=== PATIENT | male | born 1950 | race Caucasian/White ===

== ENCOUNTER → 2019-04-29 11:36 | Outpatient (CLI) | payer MEDICARE, OTHER, SELFPAY ==
[2019-04-29 13:13] LABS: Blood Urea Nitrogen 17 mg/dL (9-20); Carbon Dioxide 31 mmol/L (22-32); Chloride 102 mmol/L (98-107); Estimated Glomerular Filt Rate > 60.0 mL/min (>60); Glucose 70 mg/dL (80-110); HEMOLYSIS < 15 (0-50); Potassium 4.7 mmol/L (3.4-5.1); Sodium 141 mmol/L (137-145)
[2019-04-29 13:42] LABS: Prostate Specific Antigen Scrn 9.51 ng/mL (0.1-4.0)
[2019-04-29 15:23] LABS: Vitamin D 25 Hydroxy (D3) 68.3 ng/mL (30.0-100.0)
== END ==
PROVIDERS: PCP Student in an Organized Health Care Education/Training Program; Visit Provider Student in an Organized Health Care Education/Training Program
DX: R97.20 Elevated prostate specific antigen [PSA] (principal); E55.9 Vitamin D deficiency, unspecified; I10 Essential (primary) hypertension
CPT/HCPCS: 36415; 80048; 82306; 84153; G0103

== ENCOUNTER → 2019-05-06 09:44 | Outpatient (CLI) | payer MEDICARE, OTHER, SELFPAY ==
--- NOTE | 2019-05-06 09:45 | DI.US.S_ITS ---
PROCEDURE: US ABD AORTA ANEURYSM SCREEN INDICATIONS: AAA SCREEN TECHNIQUE: Real time scanning was performed of the aorta and iliac arteries, with image documentation. COMPARISON: None. FINDINGS: Aorta: Proximal aortic diameter measures 2.3 cm. Mid-aorta measures 2.0 cm. Distal aortic diameter is 1.9 cm. Iliac arteries: Right common iliac artery measures 1.3 cm. Left common iliac artery measures 1.2 cm. IMPRESSION: No abdominal aortic or proximal common iliac artery aneurysm. Dictated by: Isaias HUNTLEY Interpreted: Vaishali Molina MD on 05/06/2019 at 10:22 Approved by: Vaishali Molina M.D. on 05/06/2019 at 14:46
== END ==
PROVIDERS: PCP Student in an Organized Health Care Education/Training Program; Visit Provider Student in an Organized Health Care Education/Training Program
DX: Z13.6 Encounter for screening for cardiovascular disorders (principal); Z87.891 Personal history of nicotine dependence
CPT/HCPCS: 76706

== ENCOUNTER → 2019-12-13 12:43 | Outpatient (CLI) | payer MEDICARE, OTHER, SELFPAY ==
[2019-12-13 15:59] LABS: Prostate Specific Antigen 9.95 ng/mL (0.10-4.00)
== END ==
PROVIDERS: PCP Student in an Organized Health Care Education/Training Program; Visit Provider Urology
DX: Z85.46 Personal history of malignant neoplasm of prostate (principal)
CPT/HCPCS: 36415; 84153

== ENCOUNTER → 2020-04-26 12:32 | Outpatient (CLI) | payer MEDICARE, OTHER, SELFPAY ==
[2020-04-26 18:52] LABS: Prostate Specific Antigen 5.84 ng/mL (0.10-4.00)
== END ==
PROVIDERS: PCP Student in an Organized Health Care Education/Training Program; Referring Provider Urology; Visit Provider Urology
DX: R97.20 Elevated prostate specific antigen [PSA] (principal)
CPT/HCPCS: 36415; 84153

== ENCOUNTER → 2020-10-13 12:09 | Outpatient (CLI) | payer MEDICARE, OTHER, SELFPAY ==
[2020-10-13 15:03] LABS: BUN Creatinine Ratio 17.3 (6-22); Blood Urea Nitrogen 17 mg/dL (9-20); Calcium 9.8 mg/dL (8.4-10.2); Carbon Dioxide 30 mmol/L (22-32); Chloride 101 mmol/L (98-107); Estimated Glomerular Filt Rate > 60.0 mL/min (>60); Glucose 67 mg/dL (80-110); HEMOLYSIS < 15 (0-50); Potassium 4.2 mmol/L (3.4-5.1); Sodium 141 mmol/L (137-145)
[2020-10-13 15:33] LABS: Prostate Specific Antigen 6.24 ng/mL (0.10-4.00)
== END ==
PROVIDERS: PCP Student in an Organized Health Care Education/Training Program; Referring Provider Urology; Visit Provider Urology
DX: Z85.46 Personal history of malignant neoplasm of prostate (principal); I10 Essential (primary) hypertension
CPT/HCPCS: 36415; 80048; 84153

== ENCOUNTER → 2020-12-05 11:59 | Outpatient (CLI) | payer MEDICARE, OTHER, SELFPAY ==
[2020-12-05 12:22] LABS: COVID19 -Nasal RAPID Negative (Negative)
== END ==
PROVIDERS: PCP Student in an Organized Health Care Education/Training Program; Visit Provider Physician Assistant
DX: Z20.822 Contact with and (suspected) exposure to COVID-19 (principal)
CPT/HCPCS: 87635

== ENCOUNTER → 2021-04-12 11:42 | Outpatient (CLI) | payer MEDICARE, OTHER, SELFPAY ==
--- NOTE | 2021-05-02 09:06 | P.HOLT.S_ITS ---
Home Care Manager Report Referral & Results Date Patient Seen: 04/12/21 Requesting provider: Sarmad Mitchell Indication: Syncope Duration of monitoring (days): 3 Diary information: There were 2 patient triggered events and 2 patient diary entries These patient events were associated with sinus rhythm only Data: Minimum heart rate identified was 40 beats per minute at 01:13 on 04/15/2021 Maximum sinus heart rate was 119 beats per minute at 10:45 on 04/15/2021 Maximum overall heart rate was 162 beats per minute at 17:39 on 04/12/2021 during an 11 beat run of SVT/atrial tachycardia Less than 1% of identified beats were ventricular or supraventricular ectopic in origin, which would classify them as rare. 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
== END ==
PROVIDERS: PCP Student in an Organized Health Care Education/Training Program; Referring Provider Student in an Organized Health Care Education/Training Program; Visit Provider Student in an Organized Health Care Education/Training Program
DX: R55 Syncope and collapse (principal); G45.9 Transient cerebral ischemic attack, unspecified
CPT/HCPCS: 93242; 93244

== ENCOUNTER → 2021-04-12 12:15 | Outpatient (CLI) | payer MEDICARE, OTHER, SELFPAY ==
[2021-04-12 17:41] LABS: Prostate Specific Antigen 8.52 ng/mL (0.10-4.00)
== END ==
PROVIDERS: PCP Student in an Organized Health Care Education/Training Program; Referring Provider Urology; Visit Provider Urology
DX: C61 Malignant neoplasm of prostate (principal)
CPT/HCPCS: 36415; 84153

== ENCOUNTER 2021-06-12 11:26 | Emergency (ER) | payer MEDICARE, OTHER, SELFPAY ==
[2021-06-12 11:34] VITALS: BP 148/79; PULSE 61; RESP 16; TEMP 36.3; O2SAT 98; BMI 28.1
--- NOTE | 2021-06-12 11:39 | DI.RAD.S_ITS ---
PROCEDURE: XR FOOT RT MIN 3V INDICATIONS: pain for 11 days TECHNIQUE: 3 views of the foot were acquired. COMPARISON: None. FINDINGS: Bones: Postsurgical changes compatible prior ORIF of distal right fibular fracture. No acute fractures or dislocations. No suspicious bony lesions. Mild midfoot, tibiotalar and subtalar osteoarthritis. Small dorsal calcaneal bone spur. Soft tissues: No tibiotalar joint effusion. Achilles tendon appears normal. IMPRESSION: No fracture. No acute osseous lesion. If symptoms and/or clinical suspicion for pathology persists, further assessment with repeat radiographs (7-10 days) or advanced imaging (e.g. CT, MRI or bone scan) should be considered. Dictated by: Lien Amanda MD, PhD on 06/12/2021 at 12:33 Approved by: Lien Amanda MD, PhD on 06/12/2021 at 12:34
--- NOTE | 2021-06-12 14:35 | ED_ITS ---
HPI - Extremity Injury (Lower) General Chief Complaint: Extremity Injury, Lower Stated Complaint: injured right foot, tennis injury 3 wks ago Time Seen by Provider: 06/12/21 14:26 Source: patient Mode of arrival: Ambulatory Limitations: no limitations History of Present Illness HPI Narrative: This is a 71-year-old male comes emergency department complaint of injury to his right foot. Patient states he was playing tennis 3 weeks ago, he had pain on the lateral portion over the metatarsal of his right foot. It was improving he continued to be very active and once again rolled on that side and has since had pain over the metatarsal continued. Patient is able to ambulate but is uncomfortable. He denies any other injuries. No numbness, tingling or weakness. No ecchymosis, redness or skin changes. Patient denies any major medical issues he does take an aspirin daily as well as atorvastatin and antihypertensives. Related Data Home Medications Medication Instructions Recorded Confirmed cholecalciferol (vitamin D3) 25 1,000 unit PO QDAY #0 tab 09/19/16 04/05/21 mcg (1,000 unit) tablet (Vitamin D3) omeprazole 20 mg tablet,delayed 20 mg PO QDAY #0 tab 09/19/16 04/05/21 release aspirin 81 mg tablet,delayed 81 mg PO DAILY 04/05/21 04/05/21 release Previous Rx's Medication Instructions Recorded tamsulosin 0.4 mg capsule (Flomax) 0.4 mg PO QDAY #90 cap 05/29/20 atorvastatin 20 mg tablet (Lipitor) 20 mg PO HS #90 tab 09/08/20 losartan 50 mg tablet 50 mg PO QDAY #90 tab 11/03/20 Allergies Allergy/AdvReac Type Severity Reaction Status Date / Time No Known Drug Allergies Allergy Unverified 04/05/21 14:58 Review of Systems Review of Systems ROS Unobtainable: All systems reviewed & are unremarkable except as noted in HPI and below Patient History Medical History Seasonal allergies Sinusitis Tinnitus (~2014) Surgical History Fibula fracture (~2014) History of surgery (~1968) Family History Father History of heart bypass surgery Mother Hypertension Hyperlipidemia Lymphoma History of heart disease Social History Smoking Status: Never smoker Smoking Status: Never smoker Substance Use Type: does not use Exam Narrative Exam Narrative: GENERAL: Alert and oriented x three, male in mild distress. Seated in chair. HEENT: Head normocephalic, atraumatic, EOMI, pupils reactive, face symmetric, moist mucous membranes NECK: Supple, full range of motion EXTREMITIES: Normal range of motion, no clubbing or edema. Neurovascularly intact. Mild tenderness over the bony prominence of the proximal metatarsal on the right foot. Patient does not have any other bony tenderness. No swelling, no erythema, no hematoma. Normal sensation. +dorsalis pedis. NEUROLOGICAL: Cranial nerves II through XII grossly intact. Moving all extre mities SKIN: Warm, dry, no petechiae, no rashes or lesions. Initial Vital Signs Initial Vital Signs: Vital Signs Temperature 97.4 F L 06/12/21 11:34 Pulse Rate 61 06/12/21 11:34 Respiratory Rate 16 06/12/21 11:34 Blood Pressure 148/79 H 06/12/21 11:34 Pulse Oximetry 98 06/12/21 11:34 Course Orders Ordered: ED Orders 06/12/21 11:39 XR foot RT min 3V Stat Vital Signs Vital signs: Vital Signs - 8 hr 06/12/21 15:27 Pulse Rate 60 Respiratory Rate 18 Blood Pressure 162/74 H Pulse Oximetry 100 MDM - Extremity Injury (Lower) Imaging Data Extremity x-ray #1: Radiologist's Impression: [address] [id number] ReportSigned Patient: Harshal Simons WMR#: [id number]: [id number]:[id number]/Sex: 71 / MDate of Service: 06/12/21Loc: EDAccession Number: [id number] Procedure: XR foot RT min 3V Ordering Provider: Jennifer De La Cruz D.O. PROCEDURE: XR FOOT RT MIN 3V INDICATIONS: pain for 11 days TECHNIQUE: 3 views of the foot were acquired. COMPARISON: None. FINDINGS: Bones: Postsurgical changes compatible prior ORIF of distal right fibular fracture. No acute fractures or dislocations. No suspicious bony lesions. Mild midfoot, tibiotalar and subtalar osteoarthritis. Small dorsal calcaneal bone spur. Soft tissues: No tibiotalar joint effusion. Achilles tendon appears normal. IMPRESSION: No fracture. No acute osseous lesion. If symptoms and/or clinical suspicion for pathology persists, further assessment with repeat radiographs (7-10 days) or advanced imaging (e.g. CT, MRI or bone scan) should be considered. Dictated by: Lien Amanda MD, PhD on 06/12/2021 at 12:33 Approved by: Lien Amanda MD, PhD on 06/12/2021 at 12:34 [facility] Narrative Medical decision making narrative: 71-year-old male with injury to his right foot. Radiology read is negative. On imaging patient does have some arthritic changes possibly this could be some sort of pain. I do not see a clear fracture but discussed with patient possibly could have 1 it is hidden although you would expect to see some bony growth at 3 weeks 10 days out which he has at that time frame. Patient was also did a ortho boot but defers this and trying ortho shoe were given referral to Orthopedic surgery but if he prefers to go through his primary care initially. Discharge Plan Departure Patient Disposition: Home Clinical Impression: Foot pain, right Instructions: DI for Foot Pain Activity Restrictions/Additional Instructions: Follow-up with your physician or orthopedic surgery. Call for an appointment. Referral is included below. You may continue home medications as prescribed. As discussed you may use ortho shoe and continue to use crutches and toe-touch weight-bearing. Splint Care: Keep splint clean and dry. Elevated affected body part to decrease swelling. OK to use ice pack on the affected body part. Use for 15-20 minutes each time, for 5-6x per day. If you develop worsening pain, numbness, tingling, discoloration of the affected body part, adjust the ortho shoe, and either see your doctor for an urgent re-assessment, or return to the Emergency Department. Return to the Emergency Department for any new or worsening symptoms. Prescriptions: No Action omeprazole 20 MG tablet,delayed release (DR/EC) 20 mg PO QDAY Qty: 0 RF: 0 cholecalciferol (vitamin D3) [Vitamin D3] 1,000 UNIT tablet 1,000 unit PO QDAY Qty: 0 RF: 0 tamsulosin [Flomax] 0.4 mg capsule 0.4 mg PO QDAY Qty: 90 RF: 3 losartan 50 mg tablet 50 mg PO QDAY Qty: 90 RF: 3 atorvastatin [Lipitor] 20 mg tablet 20 mg PO HS Qty: 90 RF: 3 aspirin 81 mg tablet,delayed release (DR/EC) 81 mg PO DAILY RF: 0 Referrals: Sarmad Mitchell MD [Primary Care Provider] - Jose Pierson MD [Physician] -
[2021-06-12 15:27] VITALS: BP 162/74; PULSE 60; RESP 18; O2SAT 100
== END 2021-06-12 15:27 | disposition home or self-care (01) ==
PROVIDERS: Emergency Provider Emergency Medicine; PCP Student in an Organized Health Care Education/Training Program
DX: M79.671 Pain in right foot (principal)
CPT/HCPCS: 73630; 99283

== ENCOUNTER → 2021-11-05 14:59 | Outpatient (CLI) | payer MEDICARE, OTHER, SELFPAY ==
[2021-11-05 18:26] LABS: Prostate Specific Antigen 7.93 ng/mL (0.10-4.00)
== END ==
PROVIDERS: PCP Student in an Organized Health Care Education/Training Program; Referring Provider Urology; Visit Provider Urology
DX: R97.20 Elevated prostate specific antigen [PSA] (principal)
CPT/HCPCS: 36415; 84153

== ENCOUNTER → 2022-06-04 11:21 | Outpatient (CLI) | payer MEDICARE, SELFPAY ==
[2022-06-04 14:15] LABS: Prostate Specific Antigen 12.3 ng/mL (0.10-4.00)
== END ==
PROVIDERS: PCP Student in an Organized Health Care Education/Training Program; Referring Provider Urology; Visit Provider Urology
DX: R97.20 Elevated prostate specific antigen [PSA] (principal)
CPT/HCPCS: 36415; 84153

== ENCOUNTER → 2022-06-28 09:41 | Outpatient (CLI) | payer MEDICARE, OTHER, SELFPAY ==
[2022-06-28 10:20] LABS: Hemoglobin A1C% w Est Avg Glu 5.8 % (4.0-6.0)
[2022-06-28 10:27] LABS: BUN Creatinine Ratio 14.4 (6-22); Blood Urea Nitrogen 16 mg/dL (9-20); Calcium 9.2 mg/dL (8.4-10.2); Carbon Dioxide 29 mmol/L (22-32); Cholesterol 223 mg/dL (140-199); Estimated Glomerular Filt Rate > 60 mL/min (>60); Glucose 102 mg/dL (80-110); HDL Cholesterol 35 mg/dL (40-60); HEMOLYSIS < 15 (0-50); LDL Cholesterol Calculated 158 mg/dL (<100); Triglycerides 152 mg/dL (35-150)
[2022-06-28 10:38] LABS: Chloride 102 mmol/L (98-107); Potassium 4.4 mmol/L (3.4-5.1); Sodium 139 mmol/L (137-145)
[2022-06-28 10:58] LABS: Prostate Specific Antigen 10.3 ng/mL (0.10-4.00)
== END ==
PROVIDERS: PCP Student in an Organized Health Care Education/Training Program; Referring Provider Physician Assistant Medical; Visit Provider Physician Assistant Medical
DX: E11.9 Type 2 diabetes mellitus without complications (principal); R97.20 Elevated prostate specific antigen [PSA]; C61 Malignant neoplasm of prostate; I10 Essential (primary) hypertension; E78.00 Pure hypercholesterolemia, unspecified
CPT/HCPCS: 36415; 80048; 80061; 83036; 84153

== ENCOUNTER → 2023-01-08 14:10 | Outpatient (CLI) | payer MEDICARE, OTHER, SELFPAY ==
[2023-01-08 16:03] LABS: Hemoglobin A1C% w Est Avg Glu 5.9 % (4.0-6.0)
[2023-01-08 19:05] LABS: Creatinine Urine Random 40.6 mg/dL
[2023-01-08 19:13] LABS: Microalbumin Urine Random < 0.6 mg/dL (0-1.6)
== END ==
PROVIDERS: PCP Student in an Organized Health Care Education/Training Program; Referring Provider Student in an Organized Health Care Education/Training Program; Visit Provider Student in an Organized Health Care Education/Training Program
DX: E11.9 Type 2 diabetes mellitus without complications (principal)
CPT/HCPCS: 36415; 82043; 82570; 83036

== ENCOUNTER → 2023-06-26 12:27 | Outpatient (CLI) | payer MEDICARE, OTHER, SELFPAY ==
[2023-06-26 15:25] LABS: Prostate Specific Antigen Scrn 8.58 ng/mL (0.1-4.0)
== END ==
PROVIDERS: PCP Pediatrics; Referring Provider Physician Assistant Medical; Visit Provider Physician Assistant Medical
DX: Z12.5 Encounter for screening for malignant neoplasm of prostate (principal); C61 Malignant neoplasm of prostate; R97.20 Elevated prostate specific antigen [PSA]
CPT/HCPCS: 36415; G0103

== ENCOUNTER → 2023-07-08 09:36 | Outpatient (CLI) | payer MEDICARE, OTHER, SELFPAY ==
[2023-07-08 11:58] LABS: BUN Creatinine Ratio 14.3 (6-22); Blood Urea Nitrogen 15 mg/dL (9-20); Calcium 8.8 mg/dL (8.4-10.2); Carbon Dioxide 28 mmol/L (22-32); Chloride 103 mmol/L (98-107); Cholesterol 133 mg/dL (140-199); Estimated Glomerular Filt Rate > 60 mL/min (>60); Glucose 103 mg/dL (80-110); HDL Cholesterol 33 mg/dL (40-60); HEMOLYSIS < 15 (0-50); LDL Cholesterol Calculated 85 mg/dL (<100); Sodium 138 mmol/L (137-145); Triglycerides 77 mg/dL (35-150)
[2023-07-09 03:36] LABS: Labcorp Hemoglobin (Hb) A1c 6.1 % (4.8-5.6)
== END ==
PROVIDERS: PCP Pediatrics; Referring Provider Student in an Organized Health Care Education/Training Program; Visit Provider Student in an Organized Health Care Education/Training Program
DX: E11.9 Type 2 diabetes mellitus without complications (principal); G45.9 Transient cerebral ischemic attack, unspecified; I10 Essential (primary) hypertension
CPT/HCPCS: 36415; 80048; 80061; 83036

== ENCOUNTER → 2023-12-11 14:03 | Outpatient (CLI) | payer MEDICARE, OTHER, SELFPAY ==
[2023-12-11 15:58] LABS: Prostate Specific Antigen 9.49 ng/mL (0.10-4.00)
== END ==
LOC: LAB 14:06
PROVIDERS: PCP Pediatrics; Referring Provider Physician Assistant Medical; Visit Provider Physician Assistant Medical
DX: C61 Malignant neoplasm of prostate (principal)
CPT/HCPCS: 36415; 84153

== ENCOUNTER → 2024-07-05 13:22 | Outpatient (CLI) | payer MEDICARE, OTHER, SELFPAY ==
[2024-07-05 21:47] LABS: Prostate Specific Antigen 9.63 ng/mL (0.10-4.00)
== END ==
LOC: LAB 13:24
PROVIDERS: PCP Family Medicine; Referring Provider Physician Assistant Medical; Visit Provider Physician Assistant Medical
DX: C61 Malignant neoplasm of prostate (principal)
CPT/HCPCS: 36415; 84153

== ENCOUNTER → 2024-10-19 10:48 | Outpatient (CLI) | payer MEDICARE, OTHER, SELFPAY ==
[2024-10-19 12:13] LABS: Hemoglobin A1C% w Est Avg Glu 5.9 % (4.0-6.0)
[2024-10-19 12:20] LABS: Alanine Aminotransferase 39 IU/L (<50); Albumin 4.3 g/dL (3.5-5.0); Albumin Globulin Ratio 1.7 (1.0-2.8); Alkaline Phosphatase 99 U/L (38-126); Aspartate Aminotransferase 29 IU/L (17-59); BUN Creatinine Ratio 13.1 (6-22); Blood Urea Nitrogen 14 mg/dL (9-20); Calcium 9.8 mg/dL (8.4-10.2); Carbon Dioxide 27 mmol/L (22-32); Chloride 101 mmol/L (98-107); Cholesterol 165 mg/dL (140-199); Estimated Glomerular Filt Rate > 60 mL/min (>60); Globulin 2.5 g/dL (1.7-4.1); Glucose 106 mg/dL (80-110); HDL Cholesterol 35 mg/dL (40-60); HEMOLYSIS < 15 (0-50); LDL Cholesterol Calculated 99 mg/dL (<100); Potassium 4.7 mmol/L (3.4-5.1); Sodium 136 mmol/L (137-145); Total Protein 6.8 g/dL (6.3-8.2); Triglycerides 157 mg/dL (35-150)
[2024-10-19 13:06] LABS: Creatinine Urine Random 82.05 mg/dL
[2024-10-19 13:18] LABS: Microalbumin Urine Random < 0.6 mg/dL (0-1.6)
== END ==
PROVIDERS: PCP Family Medicine; Referring Provider Family Medicine; Visit Provider Family Medicine
DX: Z00.00 Encounter for general adult medical examination without abnormal findings (principal); R73.01 Impaired fasting glucose; I10 Essential (primary) hypertension; E78.00 Pure hypercholesterolemia, unspecified
CPT/HCPCS: 36415; 80053; 80061; 82043; 82570; 83036

== ENCOUNTER → 2024-10-25 15:00 | Outpatient (CLI) | payer MEDICARE, OTHER, SELFPAY ==
--- NOTE | 2024-10-25 15:01 | DI.RAD.S_ITS ---
PROCEDURE: XR CHEST 2V INDICATIONS: chronic cough TECHNIQUE: 2 views of the chest were acquired. COMPARISON: None. FINDINGS: Surgical changes and devices: None. Lungs and pleura: Lungs are clear. No pleural effusions or pneumothorax. Mediastinum: Mediastinal contours are normal. Heart size is normal. Bones and chest wall: No suspicious bony abnormalities. Soft tissues appear unremarkable. IMPRESSION: No acute cardiopulmonary pathology. Dictated by: Rigo Luo M.D. on 10/25/2024 at 16:51 Approved by: Rigo Luo M.D. on 10/25/2024 at 16:51
== END ==
LOC: RAD 15:01
PROVIDERS: PCP Family Medicine; Referring Provider Family Medicine; Visit Provider Family Medicine
DX: R05.3 Chronic cough (principal)
CPT/HCPCS: 71046

== ENCOUNTER → 2024-11-04 14:42 | Outpatient (CLI) | payer MEDICARE, OTHER, SELFPAY ==
--- NOTE | 2024-11-04 14:43 | DI.ECHO.S_ITS ---
[facility]+ [facility] : : [address] : : [place] : : [id number] : : Phone: [phone] Echocardiogram Report + + :Name: CARLOS KHAN Study Date: 11/04/2024 Height: 67 in : :[facility] ReadingLocation: Weight: 180 lb : : Gender: Male BSA: 1.9 m2 : :: 1950 Age: 74 yrs BP: 166/91 mmHg: :Reason For Study: MURMUR, HYPERTENSION : :Ordering Physician: ION CURIELPerformed By: Jessica Zarate : :Referring: ION CURIEL : + + Interpretation Summary The left ventricle is normal in size. The ejection fraction is estimated to be 55-60%. The right ventricle is normal size. Right ventricular systolic function is at the lower limits of normal. The aortic valve is mildly calcified. There is mildly reduced leaflet mobility. There is no hemodynamically significant valvular aortic stenosis. There is mild tricuspid regurgitation. The right ventricular systolic pressure is estimated to be at least 23 mmHg based on an estimated right atrial pressure of 3 mm Hg. Procedure: A two-dimensional transthoracic echocardiogram with color flow and Doppler was performed. The study quality was technically adequate. There is no prior echocardiogram noted for this patient. The patient was in sinus bradycardia with heart rates between 55-58 bpm during the exam. Left Ventricle: The left ventricle is normal in size. There is normal left ventricular wall thickness. There is no thrombus. The ejection fraction is estimated to be 55-60%. There are no focal wall motion abnormalities. Diastolic parameters suggest a relaxation abnormality of the left ventricle, consistent with probable normal filling pressures. Right Ventricle: The right ventricle is normal size. Right ventricular systolic function is at the lower limits of normal. Atria: The left atrial size is normal. Right atrial size is normal. There is no Doppler evidence for an interatrial shunt. Mitral Valve: There is mild mitral annular calcification. There is trace mitral regurgitation. Aortic Valve: The aortic valve is mildly calcified. There is mildly reduced leaflet mobility. There is mild aortic valve sclerosis. There is no hemodynamically significant valvular aortic stenosis. No aortic regurgitation is present. Tricuspid Valve: The tricuspid valve is normal. There is mild tricuspid regurgitation. The right ventricular systolic pressure is estimated to be at least 23 mmHg based on an estimated right atrial pressure of 3 mm Hg. Pulmonic Valve: The pulmonic valve leaflets are thin and pliable; valve motion is normal. There is no pulmonic valvular regurgitation. Great Vessels: The aortic root is normal size. The dimensions of the ascending aorta are normal. The IVC is of normal diameter and collapses greater than 50% with a sniff. This suggests a low right atrial pressure of 3 mm Hg. Pericardium/ Pleura There is no pericardial effusion. There is no pleural effusion. MMode/2D Measurements & Calculations LVIDd: 4.1 cm LVOT diam: 2.0 cm LVIDs: 3.0 cm Ao root diam: 3.1 cm FS: 26.4 % asc Aorta Diam: 3.7 cm IVSd: 1.1 cm Ao Arch Diam (Prox Trans): 2.7 cm LVPWd: 0.92 cm LV mendoza. diameter/BSA (cm/m^2): 2.1 LV sys. diameter/BSA (cm/m^2): 1.6 LA A2 area: 17.5 cm2 RA long axis: 5.0 cm LA A4 area: 13.3 cm2 RA area: 16.4 cm2 LA length (vol): 4.5 cm RA vol: 45.7 ml LA vol: 43.7 ml RA : 23.6 ml/m2 LA vol index: 22.6 ml/m2 IVC diam: 1.9 cm RVD1 (basal): 3.2 cm RVD2 (mid): 3.4 cm TAPSE: 1.5 cm Doppler Measurements & Calculations Ao V2 max: 170.1 cm/sec LVOT Max Garrison: 121.5 cm/sec Ao V2 mean: 121.2 cm/sec LV V1 max P.9 mmHg Ao max P.9 mmHg LV V1 VTI: 26.3 cm Ao mean P.7 mmHg DEEPTHI(I,D): 2.2 cm2 Ao V2 VTI: 37.4 cm DEEPTHI(V,D): 2.2 cm2 sev ratio: 0.70 DEEPTHI indexed to BSA (cm^2/m^2): 1.1 MV E max garrison: 63.8 cm/sec TR max garrison: 220.6 cm/sec MV A max garrison: 72.0 cm/sec TR max P.5 mmHg MV E/A: 0.89 PA V2 max: 139.4 cm/sec Med Peak E' Garrison: 9.0 cm/sec PA V2 mean: 91.6 cm/sec E/E' med: 7.1 PA mean P.8 mmHg Lat Peak E' Garrison: 10.0 cm/sec PA pr(Accel): 32.8 mmHg E/E' lat: 6.4 E/e' average: 6.7 MV dec time: 0.16 sec SV(LVOT): 82.6 ml Reading Physician:05:02 PM
== END ==
PROVIDERS: PCP Family Medicine; Referring Provider Family Medicine; Visit Provider Family Medicine
DX: I10 Essential (primary) hypertension (principal); R01.1 Cardiac murmur, unspecified; I08.3 Combined rheumatic disorders of mitral, aortic and tricuspid valves
CPT/HCPCS: 93306

== ENCOUNTER → 2024-12-27 10:44 | Outpatient (CLI) | payer MEDICARE, OTHER, SELFPAY ==
[2024-12-27 12:24] LABS: Prostate Specific Antigen 10.2 ng/mL (0.10-4.00)
== END ==
PROVIDERS: PCP Family Medicine; Referring Provider Physician Assistant Medical; Visit Provider Physician Assistant Medical
DX: C61 Malignant neoplasm of prostate (principal)
CPT/HCPCS: 36415; 84153

== ENCOUNTER → 2025-04-28 10:43 | Outpatient (CLI) | payer MEDICARE, OTHER, SELFPAY ==
[2025-04-28 12:17] LABS: Cholesterol 128 mg/dL (140-199); HDL Cholesterol 34 mg/dL (40-60); LDL Cholesterol Calculated 74 mg/dL (<100); Triglycerides 101 mg/dL (35-150)
[2025-05-02 04:07] LABS: Lipoprotein (a) 110.5 nmol/L (<75.0)
== END ==
PROVIDERS: PCP Family Medicine; Referring Provider Internal Medicine Cardiovascular Disease; Visit Provider Internal Medicine Cardiovascular Disease
DX: I25.10 Atherosclerotic heart disease of native coronary artery without angina pectoris (principal)
CPT/HCPCS: 36415; 80061; 83695

== ENCOUNTER → 2025-07-12 11:12 | Outpatient (CLI) | payer MEDICARE, OTHER, SELFPAY ==
[2025-07-12 14:38] LABS: Prostate Specific Antigen 11.1 ng/mL (0.10-4.00)
== END ==
PROVIDERS: PCP Family Medicine; Referring Provider Physician Assistant Medical; Visit Provider Physician Assistant Medical
DX: C61 Malignant neoplasm of prostate (principal)
CPT/HCPCS: 36415; 84153

== ENCOUNTER → 2025-09-08 11:25 | Outpatient (CLI) | payer MEDICARE, OTHER, SELFPAY ==
[2025-09-08 13:01] LABS: Influenza A - CEPHEID Flu A NEGATIVE (NEGATIVE); Influenza B - CEPHEID Flu B NEGATIVE (NEGATIVE)
[2025-09-08 13:04] LABS: COVID-19 CEPHEID 4-PLEX PCR Negative (Negative)
== END ==
PROVIDERS: PCP Family Medicine; Visit Provider Physician Assistant
DX: R05.9 Cough, unspecified (principal)
CPT/HCPCS: 87637

== ENCOUNTER → 2025-09-08 11:49 | Outpatient (CLI) | payer MEDICARE, OTHER, SELFPAY ==
--- NOTE | 2025-09-08 11:50 | DI.RAD.S_ITS ---
PROCEDURE: XR CHEST 2V INDICATIONS: cough x 10 days TECHNIQUE: 2 views of the chest were acquired. COMPARISON: [facility], CR, XR CHEST 2V, 10/25/2024, 15:03. FINDINGS: Surgical changes and devices: None. Lungs and pleura: Lungs are clear. No pleural effusions or pneumothorax. Mediastinum: Mediastinal contours are normal. Heart size is normal. Bones and chest wall: No suspicious bony abnormalities. Soft tissues appear unremarkable. IMPRESSION: No acute cardiopulmonary abnormality is seen. Dictated by: Everette Castellanos M.D. on 09/08/2025 at 12:20 Approved by: Everette Castellanos M.D. on 09/08/2025 at 12:21
== END ==
PROVIDERS: PCP Family Medicine; Referring Provider Physician Assistant; Visit Provider Physician Assistant
DX: J06.9 Acute upper respiratory infection, unspecified (principal); R05.9 Cough, unspecified
CPT/HCPCS: 71046; 87637